=== PATIENT | female | born 2000 | race Caucasian/White ===

== ENCOUNTER 2024-04-08 10:51 | Emergency (ER) | payer OTHER, SELFPAY ==
--- OUTSIDE RECORDS SUMMARY | 2024-04-08 11:04 | XMS_ITS | Clinical Summary ---
Author Organization [facility] Address [address] [place] [phone] Care Team Providers Care Centerless Grinder Operator Name Role Phone Jose Vidales MD Primary Care Provider Allergies Active Allergy Reactions Criticality Noted Date Comments Latex Itching,Rash Medium 12/20/2023 Penicillin Nausea & Vomiting Low 12/20/2023 Medications etonogestreL (Nexplanon) 68 mg implant Inject 1 each (68 mg total) under the skin as directed Active folic acid (FOLVITE) 1 mg tablet Take 1 tablet (1 mg total) by mouth daily 30 tablet 11 4 Active lamoTRIgine (LaMICtal) 200 mg tablet Take 1 tablet (200 mg total) by mouth 2 (two) times a day 180 tablet 2 4 11/28/19 25 Active venlafaxine XR (EFFEXOR-XR) 75 mg 24 hr capsuleIndicatio ns:Anxiety disorder, unspecified type Take 1 capsule (75 mg total) by mouth daily 90 capsule 3 4 Active primidone (MYSOLINE) 50 mg tablet Take 1 tablet (50 mg total) by mouth 2 (two) times a day 180 tablet 1 4 08/06/19 25 Active levETIRAcetam (KEPPRA) 1,000 mg tablet Take 1.5 tablets (1,500 mg total) by mouth 2 (two) times a day 270 tablet 1 5 09/09/19 25 Active levETIRAcetam (KEPPRA) 1,000 mg tablet Take 1.5 tablets (1,500 mg total) by mouth 2 (two) times a day 270 tablet 2 4 03/12/19 25 Discontinu ed(Reorder ) Active Problems Problem Noted Date Diagnosed Date Essential tremor 03/07/2023 Nonintractable generalized i diopathic epilepsy without status epilepticus 10/03/2022 Generalized idiopathic epile psy and epileptic syndromes, not intractable, without status epilepticus 12/28/2021 Jerking movements of extremities 09/23/2021 Simple tics 09/23/2021 Transient alteration of awareness 09/23/2021 Seizure-like activity 09/23/2021 Anxiety disorder 05/16/2017 Acne 06/22/2014 Kyphosis 07/03/2012 Resolved Problems Problem Noted Date Diagnosed Date Resolved Date Encounter for preventative a dult health care examination 10/30/2023 12/26/2023 Assessment & Plan (10/30/2023 10:58 AM CDT): - Depression screen: PHQ Screening PHQ-2 Total Score (If total score is 3 or more points, staff should administer the PHQ-9): 0 PHQ-9 Total Score: 0 - A1c: screen today - Lipids: screen today Low vit D Low vit b12 TSH: screen today - Mammogram at 40 yo - Pap: Nov 2023, Dr. Dodie Mendez - Colon cancer: screen at 45 yo - HIV: declines - Hep C:declines - Other STI screen: declines - Influenza: Does it through work - Td/Tdap: 06/20/2024 - HPV:Completed - COVID: enc to keep up to date Routine health maintenance objectives discussed including need for healthy diet, physical activity, and need for adequate calcium and vitamin D intake. Orders placed for any outstanding screening studies as noted. Physical exam performed as above.Routine annual labs, if needed, have been ordered and will be reviewed with patient when results available. Encounters Date Type Department Care Team Description 04/08/2024 10:27 AM TWISTER TENDER PAPER - 04/08/2024 10:40 AM [facility] Emergency [facility] Emergency Department [address] [place] [address] Discharge Disposition: Left without being seen 02/01/2024 Orders Only [facility] [address] [place] [phone] Cody Howell MD Dyspareunia, female (Primary Dx) from Last 3 Months Immunizations Immunization Administration Dates Next Due DTaP 10/21/2003, 0,1998,06/19,1998 HPV, Quadrivalent 05/18/2012,04/05/2011 HPV, Unspecified 09/21/2009 Hep A, Pediatric 04/05/2011,09/21/2009 Hep B, Adolescent or Pediatric 1998,1998,1998 Hib (PRP-T) 07/22/1999, 9,1998,03/23 IPV 10/21/2003, 0,1998,03/23 Influenza LAIV (Nasal) 12/09/2011 Influenza Nasal, Unspecified 12/09/2011 Influenza, Quadrivalent, Rec ombinant, Egg Free, Preservative Free, Intramuscular 10/24/2018 Influenza, Quadrivalent, Spl it, Preservative Free, Intramuscular 12/25/2014,01/24/2014 Influenza, Unspecified 11/04/2010,2009,02/24/2008,01/03 MMR 10/21/2003,01/29/1999 Meningococcal B, Recombinant (Trumenba) 06/23/2016,09/11/2015 Meningococcal MCV4P (Menactra) 06/20/2014 Meningococcal Polysaccharide (Menomune) 09/21/2009 Tdap 06/20/2014,09/21/2009 Varicella 09/21/2009,01/29/1999 Surgical History Surgery Date Site/Laterality Comments WISDOM TOOTH EXTRACTION Medical History Medical History Date Comments Essential tremor 03/07/2023 Family History Medical History Relation Name Comments Anxiety disorder Mother Relation Name Status Comments Father Alive Mother Alive Social History Tobacco Use Types Packs/Day Years Used Date Smoking Tobacco: Never Smokeless Tobacco: Never Alcohol Use Standard Drinks/Week Comments Never 0 (1 standard drink = 0.6 oz pur e alcohol) [facility] Utilities Answer Date Recorded In the past 12 months has e [employer], gas, oil, or water company threatened to shut off services in your home? No 10/30/2023 Humiliation, Afraid, Rape, and Kick questionnair e Answer Date Recorded Within the last year, have y ou been afraid of your partner or ex-partner? No 10/30/2023 Within the last year, have y ou been humiliated or emotionally abused in other ways by your partner or ex-partner? No Within the last year, have y ou been kicked, hit, slapped, or otherwise physically hurt by your partner or ex-partner? No 10/30/2023 Within the last year, have y ou been raped or forced to have any kind of sexual activity by your partner or ex-partner? No 10/30/2023 Social Connection and Isolat ion Panel [NHANES] Answer Date Recorded In a typical week, how many times do you talk on the phone with family, friends, or neighbors? More than three times a week 10/30/2023 How often do you get togethe r with friends or relatives? Three times a week 10/30/2023 How often do you attend chur ch or presybeterian services? 1 to 4 times per year 10/30/2023 Do you belong to any clubs o r organizations such as congregation groups, unions, fraternal or athletic groups, or school groups? No 10/30/2023 How often do you attend meet ings of the clubs or organizations you belong to? Never 10/30/2023 Are you , , di vorced, , never , or living with a partner? 10/30/2023 AUDIT-C Answer Date Recorded Q1: How often do you have a drink containing alc ohol? Monthly or less 10/30/2023 Q2: How many drinks containi ng alcohol do you have on a typical day when you are drinking? 1 or 2 10/30/2023 Q3: How often do you have si x or more drinks on one occasion? Never 10/30/2023 Overall Financial Resource Strain (CARDIA) Answe r Date Recorded How hard is it for you to pa y for the very basics like food, housing, medical care, and heating? Not hard at all 10/30/2023 PHQ-2 Answer Date Recorded PHQ-2 Total Score (If total score is 3 or more points, staff should administer the PHQ-9) 0 10/30/2023 [facility] Occupat ional [facility] - Occupational Stress Questionnaire Answer Date Recorded Do you feel stress - tense, restless, nervous, or anxious, or unable to sleep at night because your mind is troubled all the time - these days? Only a little 10/30/2023 Exercise Vital Sign Answer Date Recorde d On average, how many days pe r week do you engage in moderate to strenuous exercise (like a brisk walk)? 5 days 10/30/2023 On average, how many minutes do you engage in exercise at this level? 60 min 10/30/2023 Hunger Vital Sign Answer Date Recorded Within the past 12 months, y ou worried that your food would run out before you got the money to buy more. Never true 10/30/19 24 Within the past 12 months, t he food you bought just didn't last and you didn't have money to get more. Never true 10/30/2023 PRAPARE - Transportation Answer Date Re corded In the past 12 months, has l ack of transportation kept you from medical appointments or from getting medications? No 10/20 In the past 12 months, has l ack of transportation kept you from meetings, work, or from getting things needed for daily living? No 10/30/2023 Housing Stability Vital Sign Answer Farhat e Recorded In the last 12 months, was t here a time when you were not able to pay the mortgage or rent on time? No 10/30/2023 Number of Times Moved in the Last Year Not on fi le 10/30/2023 At any time in the past 12 m [facility], were you homeless or living in a [facility] (including now)? No 10/30/2023 Personal Safety Answer Date Recorded Have you ever been in or are you currently in a harmful physical or emotional relationship or is someone making you feel afraid or unsafe? Denies 04/08/2024 Comments No Sex and Gender Information Value Date Recorded Sex Assigned at Not on file Legal Sex Female 9:54 AM TWISTER TENDER PAPER Gender Identity Female 09/16/2022 1:09 AM CDT Sexual Orientation Not on file Occupation Industry Job Start Date Job End Date [employer] Not on file Not on file Not on f ile [employer] job Not on file Not on file Not on file Obstetrics History Last Filed Vital Signs Vital Sign Reading Time Taken Comments Blood Pressure 127/85 04/08/2024 8:00 AM TWISTER TENDER PAPER Pulse 99 04/08/2024 8:00 AM TWISTER TENDER PAPER Temperature 36.8 C (98.3 F) 04/08/2024 8:00 AM TWISTER TENDER PAPER Respiratory Rate 18 04/08/2024 8:00 AM TWISTER TENDER PAPER Oxygen Saturation 97% 04/08/2024 8:00 AM TWISTER TENDER PAPER Inhaled Oxygen Concentration - - Weight 79.4 kg (175 lb) 04/08/2024 8:00 AM TWISTER TENDER PAPER Height 167.6 cm (5' 6 ) 04/08/2024 8:00 AM TWISTER TENDER PAPER Body Mass Index 28.25 04/08/2024 8:00 AM TWISTER TENDER PAPER Plan of Treatment Health Maintenance Due Date Last Done Comments Hepatitis C Screening 2000 Covid-19 Vaccine ( season) 2023 07/11/2020 DTaP/Tdap/Td Vaccine (8 - Td or Tdap) 06/20/2024 06/20/2014, 09/21/2009, 10/21/2003, Additional history exists Influenza Vaccine (#1) 2024 , 10/24/2018, 12/25/2014, Additional history exists Postponed from 10/21/2023 (Patient declined, but will receive in the future) Depression Screening 10/29/2024 10/30/2023, 10/30/2023, 05/19/2021, Additional history exists Cervical Cancer Screening 12/19/2024 12/20/2023, 02/2022 Regular Well Visit/Exam 18-64 12/19/2024 12/20/2023, 10/30/2023, 10/30/2023, Additional history exists Hepatitis B Screening Completed 1998 , 1998, 1998 Varicella Vaccines Completed 09/21/2009, 01/29/1999 HPV Vaccines Completed 05/18/2012, 03/22, 09/21/2009 Pneumococcal vaccine <65 Aged Out No longer eligible based on patient's age to complete this topic Procedures Procedure Name Priority Date/Time Associated Diagnosis Comments PAP WITH REFLEX TO HIGH RISK HPV Routine 12/20/2023 3:07 PM CDT from Last 3 Months or Most Recently Relevant to Health Maintenance Results * Pap with reflex to High Risk HPV and Genotyping (Cytology Component) (12/20/2023 3:07 PM CDT) Pap test 12/20/2023 3:07 PM CDT 12/25/2023 12:27 PM TWISTER TENDER PAPER Narrative 12/28/2023 2:41 PM TWISTER TENDER PAPER EPIC results best viewed via link to PDF [address] [address] Tele: Hilaria Haq MD - Reactor Kettle Operator CYTOLOGY REPORT Note to Patients: This report may contain a detailed description of human tissue sent by a health care provider to the laboratory for pathologic evaluation. The content of this report is essential for diagnosis and may provide important critical findings. This information may be unfamiliar to patients to review without a medical professional present. It is advised that the patient review this report in the presence of a health care provider who can answer questions and explain the details. Patient Name: LULY OLIVIA Address: [address] [place] [address]- Gender: F : 2000 (Age: 23) Service: Location: N : [id number] [facility] #: [id number] Patient Type: [facility] SPECIMEN Taken: 12/20/2023 Reported: 12/28/2023 Physician(s): Dr. Cody Howell M.D. FINAL DIAGNOSIS: SOURCE OF SPECIMEN - ThinPrep Pap w/ reflex HPV: STATEMENT OF ADEQUACY Source: Cervical/Endocervical - Satisfactory for interpretation - Endocervical/Transformation zone component absent or insufficient - Case screened using computer assisted imaging technology GENERAL CATEGORIZATION: - Negative for intraepithelial lesion or malignancy INTERPRETATION: - Acute Inflammation lewo/12/28/2023 14:41Hector Manley (ASCP) Report Reviewed and Electronically Signed By Hector Manley ([facility])Clerical Data Follow A; G0145 CLINICAL DIAGNOSIS AND HISTORY Last Menstrual Period: 11/19/2023 Menstrual History: Irregular Cycles Contraceptive History: control implant: NEXPLANON REPORT IMAGES AND/OR SCANNED DOCUMENTS ONLY VIEWABLE IN PDF FORMAT The Pap test is a screening test used to aid in the detection of cervical cancer and its precursors. It should not be the sole means by which malignant and premalignant lesions are diagnosed. Both false negative and false positive results may occur. It also has poor sensitivity for the detection of endometrial lesions and should not be used to evaluate suspected endometrial abnormalities. For these reasons it is most important to obtain Pap tests at regular intervals, as recommended by your physician or nurse practitioner. Frozen section, operating room consultation, gross examination and dissection, and case sign out may have been performed in part or completely in the following laboratories: [facility], [facility] [address], [address] [place] [address]. Cody Howell MD LAB CYTOLOGY ORDERABLES Fin al Result from Last 3 Months or Most Recently Relevant to Health Maintenance Insurance [facility] Care Teams Centerless Grinder Operator Relationship Specialty Start Date End Date Jose Vidales MD [address] [place] [address] PCP - General 05/16/17 zen rodriguez Primary Eye Care Provider 10/30/23
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
--- OUTSIDE RECORDS SUMMARY | 2024-04-08 11:04 | XMS_ITS | Referral Summary ---
Author Organization [facility] Address [address] [place] [address] Care Team Providers Care Agricultural Engineering Technicians Name Role Phone Jose Vidales MD Primary Care Provider Encounters Date Type Department Care Team Description 04/08/2024 10:27 AM [facility] - 04/08/2024 10:40 AM [facility] Emergency [facility] Emergency Department [address] [place] [address] Discharge Disposition: Left without being seen 02/01/2024 Orders Only [facility] [address] [place] [address] Cody Howell MD Dyspareunia, female (Primary Dx) from Last 3 Months Allergies Active Allergy Reactions Criticality Noted Date [...] be reviewed with patient when results available. Immunizations Immunization Administration Dates Next Due DTaP [...] Polysaccharide (Menomune) 09/21/2009 Tdap 06/20/2014,09/21/2009 Varicella 09/21/2009,01/29/1999 Social History Tobacco Use Types Packs/Day Years Used Date Smoking Tobacco: Never Smokeless Tobacco: Never Alcohol Use Standard Drinks/Week Comments Never 0 (1 standard drink = 0.6 oz pur e alcohol) [facility] Utilities Answer Date Recorded In the past 12 months has [employer], gas, oil, or water [employer] threatened to shut off services in your [...] week 10/30/2023 How often do you attend [facility] or restorationism services? 1 to 4 times per year 10/30/2023 Do you belong to any clubs o r organizations such as latter-day groups, unions, fraternal or athletic groups, or [...] staff should administer the PHQ-9) 0 10/30/2023 [facility] of Occupat ional Health - Occupational Stress [...] any time in the past 12 m [facility], were you homeless or living in a intermediate (including now)? No 10/30/2023 Personal Safety Answer Date Recorded Have you ever been in or are you currently in a harmful physical or emotional relationship or is someone making you feel afraid or unsafe? Denies 04/08/2024 Comments No Sex and Gender Information Value Date Recorded Sex Assigned at Not on file Legal Sex Female 9:54 AM MANAGER CASINO Gender Identity Female 09/16/2022 1:09 AM CDT Sexual Orientation Not on file Occupation Industry Job Start Date Job End Date [employer] Not on file Not on file Not on f ile [employer] job Not on file Not on file Not on file Last Filed Vital Signs Vital Sign Reading Time Taken Comments Blood Pressure 127/85 04/08/2024 8:00 AM MANAGER CASINO Pulse 99 04/08/2024 8:00 AM MANAGER CASINO Temperature 36.8 C (98.3 F) 04/08/2024 8:00 AM MANAGER CASINO Respiratory Rate 18 04/08/2024 8:00 AM MANAGER CASINO Oxygen Saturation 97% 04/08/2024 8:00 AM MANAGER CASINO Inhaled Oxygen Concentration - - Weight 79.4 kg (175 lb) 04/08/2024 8:00 AM MANAGER CASINO Height 167.6 cm (5' 6 ) 04/08/2024 8:00 AM MANAGER CASINO Body Mass Index 28.25 04/08/2024 8:00 AM MANAGER CASINO Plan of Treatment Not on file Procedures Procedure Name Priority Date/Time Associated Diagnosis Comments PAP WITH REFLEX TO HIGH RISK HPV Routine 12/20/2023 3:07 PM CDT from Last 3 Months or Most Recently Relevant to Health Maintenance Results * Pap with reflex to High Risk HPV and Genotyping (Cytology Component) (12/20/2023 3:07 PM CDT) Pap test 12/20/2023 3:07 PM CDT 12/25/2023 12:27 PM MANAGER CASINO Narrative 12/28/2023 2:41 PM MANAGER CASINO EPIC results best viewed via link to PDF [address] [address] Tele: Hilaria Haq MD - Solar Installation Helper CYTOLOGY REPORT Note to Patients: This report [...] the details. Patient Name: LULY OLIVIA Address: [address] [place] [address]- Gender: F : 2000 (Age: 23) Service: Location: N : [id number] [facility] #: [id number] Patient Type: [facility] SPECIMEN Taken: 12/20/2023 Reported: 12/28/2023 Physician(s): Dr. [...] Reviewed and Electronically Signed By Hector Manley (ASCP)Clerical Data Follow A; G0145 CLINICAL DIAGNOSIS AND [...] part or completely in the following laboratories: [facility], [facility] [place] [address]. Cody Howell MD LAB CYTOLOGY ORDERABLES Fin al Result from Last 3 Months or Most Recently Relevant to Health Maintenance Insurance [facility] Care Teams Agricultural Engineering Technicians Relationship Specialty Start Date End Date Jose Vidales MD [address] [place] [address] PCP - General 05/16/17 zen rodriguez Primary Eye Care Provider 10/30/23
[2024-04-08 11:09] VITALS: BP 125/93; PULSE 94; RESP 18; TEMP 36.5; O2SAT 99
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
== END 2024-04-08 11:41 | disposition left against medical advice (07) ==
PROVIDERS: Emergency Provider Nurse Practitioner Family; PCP Internal Medicine
DX: M54.2 Cervicalgia (principal); V49.40XA Driver injured in collision with unspecified motor vehicles in traffic accident, initial encounter
CPT/HCPCS: 99212; G0463

== ENCOUNTER 2024-04-08 12:26 | Emergency (ER) | payer OTHER, SELFPAY ==
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
[2024-04-08 12:28] VITALS: BP 130/94; PULSE 108; RESP 18; TEMP 36.6; O2SAT 98
--- OUTSIDE RECORDS SUMMARY | 2024-04-08 12:29 | XMS_ITS | Referral Summary ---
Author Organization [facility] Address [address] [place] [address] Care Team Providers Care Wellness Program Administrator Name Role Phone Jose Vidales MD Primary Care Provider Encounters Date Type Department Care Team Description 04/08/2024 10:27 AM [facility] - 04/08/2024 10:40 AM [facility] Emergency [facility] Emergency Department [address] [place] [address] Discharge Disposition: Left without being seen 02/01/2024 Orders Only [facility] [address] [place] [address] Cody Howell MD Dyspareunia, female [...] drink = 0.6 oz pur e alcohol) [facility] Utilities Answer Date Recorded In the past 12 months has [employer], gas, oil, or water [employer] threatened to shut off services in your [...] week 10/30/2023 How often do you attend [facility] or quaker services? 1 to 4 times per year 10/30/2023 Do you belong to any clubs o r organizations such as episcopal groups, unions, fraternal or athletic groups, or [...] staff should administer the PHQ-9) 0 10/30/2023 [facility] of Occupat ional Health - Occupational Stress [...] any time in the past 12 m [facility], were you homeless or living in a group home (including now)? No 10/30/2023 Personal Safety Answer Date Recorded Have you ever been in or are you currently in a harmful physical or emotional relationship or is someone making you feel afraid or unsafe? Denies 04/08/2024 Comments No Sex and Gender Information Value Date Recorded Sex Assigned at Not on file Legal Sex Female 9:54 AM MACHINE WEDGER Gender Identity Female 09/16/2022 1:09 AM CDT Sexual Orientation Not on file Occupation Industry Job Start Date Job End Date [employer] Not on file Not on file Not on f ile [employer] job Not on file Not on file Not on file Last Filed Vital Signs Vital Sign Reading Time Taken Comments Blood Pressure 127/85 04/08/2024 8:00 AM MACHINE WEDGER Pulse 99 04/08/2024 8:00 AM MACHINE WEDGER Temperature 36.8 C (98.3 F) 04/08/2024 8:00 AM MACHINE WEDGER Respiratory Rate 18 04/08/2024 8:00 AM MACHINE WEDGER Oxygen Saturation 97% 04/08/2024 8:00 AM MACHINE WEDGER Inhaled Oxygen Concentration - - Weight 79.4 kg (175 lb) 04/08/2024 8:00 AM MACHINE WEDGER Height 167.6 cm (5' 6 ) 04/08/2024 8:00 AM MACHINE WEDGER Body Mass Index 28.25 04/08/2024 8:00 AM MACHINE WEDGER Plan of Treatment Not on file Procedures Procedure Name Priority Date/Time Associated Diagnosis Comments PAP WITH REFLEX TO HIGH RISK HPV Routine 12/20/2023 3:07 PM CDT from Last 3 Months or Most Recently Relevant to Health Maintenance Results * Pap with reflex to High Risk HPV and Genotyping (Cytology Component) (12/20/2023 3:07 PM CDT) Pap test 12/20/2023 3:07 PM CDT 12/25/2023 12:27 PM MACHINE WEDGER Narrative 12/28/2023 2:41 PM MACHINE WEDGER EPIC results best viewed via link to PDF [address] [address] Tele: Hilaria Haq MD - Software Manager CYTOLOGY REPORT Note to Patients: This report [...] details. Patient Name: LULY OLIVIA Address: [address] [place] [address]- Gender: F : 2000 (Age: 23) Service: Location: N : [id number] [facility] #: [id number] Patient Type: [facility] SPECIMEN Taken: 12/20/2023 Reported: 12/28/2023 Physician(s): [...] part or completely in the following laboratories: [facility], [facility] [place] [address]. Cody Howell MD LAB CYTOLOGY ORDERABLES Fin al Result from Last 3 Months or Most Recently Relevant to Health Maintenance Insurance [facility] CHOICE PLUS [facility] Care Teams Wellness Program Administrator Relationship Specialty Start Date End Date Jose Vidales MD [address] [place] [address] PCP - General 05/16/17 zen rodriguez Primary Eye Care Provider 10/30/23
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
--- OUTSIDE RECORDS SUMMARY | 2024-04-08 12:29 | XMS_ITS | Clinical Summary ---
Author Organization [facility] Address [address] [place] [phone] Care Team Providers Care Public Address Announcer Name Role Phone Jose Vidales MD Primary [...] Department Care Team Description 04/08/2024 10:27 AM ULTRASOUND COORDINATOR - 04/08/2024 10:40 AM [facility] Emergency [facility] Emergency Department [address] [place] [address] Discharge Disposition: Left without being seen 02/01/2024 Orders Only [facility] [address] [place] [phone] Cody Howell MD Dyspareunia, female (Primary [...] drink = 0.6 oz pur e alcohol) [facility] Utilities Answer Date Recorded In the past 12 months has e [employer], gas, oil, or water company threatened to [...] often do you attend chur ch or taoist services? 1 to 4 times per year 10/30/2023 Do you belong to any clubs o r organizations such as religion groups, unions, fraternal or athletic groups, or [...] staff should administer the PHQ-9) 0 10/30/2023 [facility] of Occupat ional [facility] - Occupational Stress Questionnaire Answer Date Recorded [...] any time in the past 12 m [facility], were you homeless or living in a residential (including now)? No 10/30/2023 Personal Safety Answer Date Recorded Have you ever been in or are you currently in a harmful physical or emotional relationship or is someone making you feel afraid or unsafe? Denies 04/08/2024 Comments No Sex and Gender Information Value Date Recorded Sex Assigned at Not on file Legal Sex Female 9:54 AM ULTRASOUND COORDINATOR Gender Identity Female 09/16/2022 1:09 AM CDT Sexual Orientation Not on file Occupation Industry Job Start Date Job End Date [employer] Not on file Not on file Not on f ile [employer] job Not on file Not on file Not on file Obstetrics History Last Filed Vital Signs Vital Sign Reading Time Taken Comments Blood Pressure 127/85 04/08/2024 8:00 AM ULTRASOUND COORDINATOR Pulse 99 04/08/2024 8:00 AM ULTRASOUND COORDINATOR Temperature 36.8 C (98.3 F) 04/08/2024 8:00 AM ULTRASOUND COORDINATOR Respiratory Rate 18 04/08/2024 8:00 AM ULTRASOUND COORDINATOR Oxygen Saturation 97% 04/08/2024 8:00 AM ULTRASOUND COORDINATOR Inhaled Oxygen Concentration - - Weight 79.4 kg (175 lb) 04/08/2024 8:00 AM ULTRASOUND COORDINATOR Height 167.6 cm (5' 6 ) 04/08/2024 8:00 AM ULTRASOUND COORDINATOR Body Mass Index 28.25 04/08/2024 8:00 AM ULTRASOUND COORDINATOR Plan of Treatment Health Maintenance Due Date [...] 12/20/2023 3:07 PM CDT 12/25/2023 12:27 PM ULTRASOUND COORDINATOR Narrative 12/28/2023 2:41 PM ULTRASOUND COORDINATOR EPIC results best viewed via link to PDF [address] [address] Tele: Hilaria Haq MD - Insert Molding Operator CYTOLOGY REPORT Note to Patients: This [...] the details. Patient Name: LULY OLIVIA Address: [address] [place] [address]- Gender: F : 2000 (Age: 23) Service: Location: N : [id number] [facility] #: [id number] Patient Type: [facility] SPECIMEN Taken: 12/20/2023 Reported: 12/28/2023 Physician(s): Dr. [...] Reviewed and Electronically Signed By Hector Manley ([facility])Clerical Data Follow A; [id number] CLINICAL [...] part or completely in the following laboratories: [facility], [facility] [address], [address] [place] [address]. Cody Howell MD LAB CYTOLOGY ORDERABLES Fin al Result from Last 3 Months or Most Recently Relevant to Health Maintenance Insurance [facility] CHOICE [facility] Care Teams Public Address Announcer Relationship Specialty Start Date End Date Jose Vidales MD [address] [place] [address] PCP - General 05/16/17 zen rodriguez Primary Eye Care Provider 10/30/23
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
--- OUTSIDE RECORDS SUMMARY | 2024-04-08 12:57 | XMS_ITS | Referral Summary ---
Author Organization [facility] Address [address] [place] [address] Care Team Providers Care Tugboat Operator Name Role Phone Jose Vidales MD Primary Care Provider Encounters Date Type Department Care Team Description 04/08/2024 10:27 AM [facility] - 04/08/2024 10:40 AM [facility] Emergency [facility] Emergency Department [address] [place] [address] Discharge Disposition: Left without being seen 02/01/2024 Orders Only [facility] [address] [facility] [address] [place] [address] Cody Howell MD Dyspareunia, female [...] drink = 0.6 oz pur e alcohol) [facility] Utilities Answer Date Recorded In the past 12 months has [employer], gas, oil, or water [employer] threatened to shut off services in your [...] week 10/30/2023 How often do you attend [facility] or jain services? 1 to 4 times per year 10/30/2023 Do you belong to any clubs o r organizations such as catholic groups, unions, fraternal or athletic groups, or [...] staff should administer the PHQ-9) 0 10/30/2023 [facility] Occup[facility] ional [facility] - Occupational Stress [...] any time in the past 12 m [facility], were you homeless or living in a mcc (including now)? No 10/30/2023 Personal Safety Answer Date Recorded Have you ever been in or are you currently in a harmful physical or emotional relationship or is someone making you feel afraid or unsafe? Denies 04/08/2024 Comments No Sex and Gender Information Value Date Recorded Sex Assigned at Not on file Legal Sex Female 9:54 AM ENVIRONMENTAL TECHNICAL OFFICER Gender Identity Female 09/16/2022 1:09 AM CDT Sexual Orientation Not on file Occupation Industry Job Start Date Job End Date [employer] Not on file Not on file Not on f ile [employer] job Not on file Not on file Not on file Last Filed Vital Signs Vital Sign Reading Time Taken Comments Blood Pressure 127/85 04/08/2024 8:00 AM ENVIRONMENTAL TECHNICAL OFFICER Pulse 99 04/08/2024 8:00 AM ENVIRONMENTAL TECHNICAL OFFICER Temperature 36.8 C (98.3 F) 04/08/2024 8:00 AM ENVIRONMENTAL TECHNICAL OFFICER Respiratory Rate 18 04/08/2024 8:00 AM ENVIRONMENTAL TECHNICAL OFFICER Oxygen Saturation 97% 04/08/2024 8:00 AM ENVIRONMENTAL TECHNICAL OFFICER Inhaled Oxygen Concentration - - Weight 79.4 kg (175 lb) 04/08/2024 8:00 AM ENVIRONMENTAL TECHNICAL OFFICER Height 167.6 cm (5' 6 ) 04/08/2024 8:00 AM ENVIRONMENTAL TECHNICAL OFFICER Body Mass Index 28.25 04/08/2024 8:00 AM ENVIRONMENTAL TECHNICAL OFFICER Plan of Treatment Not on file Procedures Procedure Name Priority Date/Time Associated Diagnosis Comments PAP WITH REFLEX TO HIGH RISK HPV Routine 12/20/2023 3:07 PM CDT from Last 3 Months or Most Recently Relevant to Health Maintenance Results * Pap with reflex to High Risk HPV and Genotyping (Cytology Component) (12/20/2023 3:07 PM CDT) Pap test 12/20/2023 3:07 PM CDT 12/25/2023 12:27 PM ENVIRONMENTAL TECHNICAL OFFICER Narrative 12/28/2023 2:41 PM ENVIRONMENTAL TECHNICAL OFFICER EPIC results best viewed via link to PDF [address] [address] Tele: Hilaria Haq MD - Qa Tester CYTOLOGY REPORT Note to Patients: This report [...] the details. Patient Name: LULY OLIVIA Address: [address] [place] [id number]- Gender: F : 2000 (Age: 23) Service: Location: N : [id number] [facility] #: [id number] Patient Type: [facility] SPECIMEN Taken: 12/20/2023 Reported: 12/28/2023 Physician(s): Dr. [...] part or completely in the following laboratories: [facility], [facility] [place] [address]. Cody Howell MD LAB CYTOLOGY ORDERABLES Fin al Result from Last 3 Months or Most Recently Relevant to Health Maintenance Insurance [facility] CHOICE PLUS [facility] Care Teams Tugboat Operator Relationship Specialty Start Date End Date Jose Vidales MD [address] [place] [address] PCP - General 05/16/17 zen rodriguez Primary Eye Care Provider 10/30/23
--- OUTSIDE RECORDS SUMMARY | 2024-04-08 12:57 | XMS_ITS | Clinical Summary ---
Author Organization [facility] Address [address] [place] [phone] Care Team Providers Care Management Liaison Name Role Phone Jose Vidales MD Primary [...] Department Care Team Description 04/08/2024 10:27 AM TOOL AND DIE MAKER/DESIGNER - 04/08/2024 10:40 AM [facility] Emergency [facility] Emergency Department [address] [place] [address] Discharge Disposition: Left without being seen 02/01/2024 Orders Only [facility] [address] [place] [phone] Cody Howell MD Dyspareunia, female (Primary [...] drink = 0.6 oz pur e alcohol) [facility] Utilities Answer Date Recorded In the past 12 months has e [employer], gas, oil, or water company threatened to [...] often do you attend chur ch or baptist services? 1 to 4 times per year 10/30/2023 Do you belong to any clubs o r organizations such as nondenominational groups, unions, fraternal or athletic groups, or [...] staff should administer the PHQ-9) 0 10/30/2023 [facility] Occupat ional [facility] - Occupational Stress Questionnaire Answer Date Recorded [...] any time in the past 12 m [facility], were you homeless or living [...] on file Legal Sex Female 9:54 AM TOOL AND DIE MAKER/DESIGNER Gender Identity Female 09/16/2022 1:09 AM CDT Sexual Orientation Not on file Occupation Industry Job Start Date Job End Date [employer] Not on file Not on file Not on f ile [employer] job Not on file Not on file Not on file Obstetrics History Last Filed Vital Signs Vital Sign Reading Time Taken Comments Blood Pressure 127/85 04/08/2024 8:00 AM TOOL AND DIE MAKER/DESIGNER Pulse 99 04/08/2024 8:00 AM TOOL AND DIE MAKER/DESIGNER Temperature 36.8 C (98.3 F) 04/08/2024 8:00 AM TOOL AND DIE MAKER/DESIGNER Respiratory Rate 18 04/08/2024 8:00 AM TOOL AND DIE MAKER/DESIGNER Oxygen Saturation 97% 04/08/2024 8:00 AM TOOL AND DIE MAKER/DESIGNER Inhaled Oxygen Concentration - - Weight 79.4 kg (175 lb) 04/08/2024 8:00 AM TOOL AND DIE MAKER/DESIGNER Height 167.6 cm (5' 6 ) 04/08/2024 8:00 AM TOOL AND DIE MAKER/DESIGNER Body Mass Index 28.25 04/08/2024 8:00 AM TOOL AND DIE MAKER/DESIGNER Plan of Treatment Health Maintenance Due Date [...] 12/20/2023 3:07 PM CDT 12/25/2023 12:27 PM TOOL AND DIE MAKER/DESIGNER Narrative 12/28/2023 2:41 PM TOOL AND DIE MAKER/DESIGNER EPIC results best viewed via link to PDF [address] [address] Tele: Hilaria Haq MD - Cnc Manager CYTOLOGY REPORT Note to Patients: This [...] the details. Patient Name: LULY OLIVIA Address: [address] [place] [address]- Gender: F : 2000 (Age: 23) Service: Location: N : [id number] [facility] #: [id number] Patient Type: [facility] SPECIMEN Taken: 12/20/2023 Reported: 12/28/2023 Physician(s): Dr. [...] Reviewed and Electronically Signed By Hector Manley ([facility])Clerical Data Follow A; G0145 CLINICAL DIAGNOSIS AND [...] part or completely in the following laboratories: [facility], [facility] [address], [address] [place] [address]. Cody Howell MD LAB CYTOLOGY ORDERABLES Fin al Result from Last 3 Months or Most Recently Relevant to Health Maintenance Insurance [facility] CHOICE PLUS [facility] HMO/PPO Address: [facility] [address] [place] [address] [facility]/PPO Address: [address] [address] [place] [address] [facility] H[facility]/PPO Address: [address] [place] [phone] Care Teams Management Liaison Relationship Specialty Start Date End Date Jose Vidales MD [address] [place] [address] PCP - General 05/16/17 zen rodriguez Primary Eye Care Provider 10/30/23
[2024-04-08] MEDS: ACETAMINOPHEN 325 MG TABLET 650 MG PO (13:03)
[2024-04-08] MEDS: IBUPROFEN 600 MG TABLET PO (13:04)
[2024-04-08 14:08] VITALS: BP 128/88; PULSE 88; RESP 18; O2SAT 99
== END 2024-04-08 14:08 | disposition home or self-care (01) ==
PROVIDERS: Emergency Provider Emergency Medicine; PCP Internal Medicine
DX: M54.2 Cervicalgia (principal); V49.40XA Driver injured in collision with unspecified motor vehicles in traffic accident, initial encounter
CPT/HCPCS: 72125; 99284; A9270